=== PATIENT | male | born 1960 | race Caucasian/White ===

== ENCOUNTER 2017-03-02 08:44 | Day surgery (SDC) | payer OTHER ==
[~2017-03-02 08:44] MED LIST: ADVIL ALLERGY1 EACH PO
== END 2017-03-02 16:20 | disposition home or self-care (01) ==
LOC: CIR.AMB 08:44
DX: M75.122 Complete rotator cuff tear or rupture of left shoulder, not specified as traumatic (principal); M13.812 Other specified arthritis, left shoulder